=== PATIENT | female | born 1955 | race Caucasian/White ===

== ENCOUNTER 2018-01-26 14:33 | Outpatient (CLI) | payer OTHER ==
--- NOTE | 2018-01-27 17:45 | Mammography Report ---
DIGITAL SCREENING MAMMOGRAM: 01/26/2018 CLINICAL INDICATION: A 62-year-old for screening. COMPARISON: 04/2011, 06/2009, 09/2007. TECHNIQUE: Routine CC and MLO projections were obtained of the breasts. FINDINGS: Parenchymal tissue within the breasts is predominantly fatty replaced. There are no dominant masses, suspicious microcalcifications, or secondary signs of malignancy. In comparison to the previous studies, there are no significant changes. IMPRESSION: NO MAMMOGRAPHIC EVIDENCE OF MALIGNANCY. NO SIGNIFICANT INTERVAL CHANGES. RECOMMENDATION: Screening mammography is recommended annually. BIRADS category 1 - negative. STANDARD QUALIFYING STATEMENTS: 1. This examination was reviewed with the aid of Computed-Aided Detection (CAD). 2. A negative or benign imaging report should not delay biopsy if clinically suspicious findings are present. Consider surgical consultation if warranted. More than 5% of cancers are not identified by imaging. 3. Dense breasts may obscure an underlying neoplasm. TD: 01/27/2018 17:44
== END 2018-01-26 14:34 | disposition home or self-care (01) ==
LOC: DI.S 14:33
PROVIDERS: ATTEND Physician Assistant
DX: Z12.31 Encounter for screening mammogram for malignant neoplasm of breast (principal)
CPT/HCPCS: 77067

== ENCOUNTER 2021-05-16 08:45 | Outpatient (CLI) | payer MEDICARE ==
[2021-05-16 15:36] LABS: THYROID STIMULATING HORMONE 0.34 uIU/mL (0.34-5.60)
[2021-05-16 15:41] LABS: ALBUMIN 4.7 g/dL (3.2-5.5); ALBUMIN/GLOBULIN RATIO 1.6 (1.0-2.2); BILIRUBIN,TOTAL 1.1 mg/dL (0.2-1.0); CREATININE 0.9 mg/dL (0.4-1.0); POTASSIUM 3.9 mmol/L (3.5-5.0); TOTAL PROTEIN 7.7 g/dL (6.7-8.2)
[2021-05-17 12:02] LABS: HEPATITIS C ANTIBODY NON-REACTIVE (NON-REACTIVE)
[2021-05-17 15:57] LABS: HIV AG/AB 4TH GEN NON-REACTIVE (NON-REACTIVE)
== END 2021-05-16 08:46 | disposition home or self-care (01) ==
LOC: LAB.S 08:45
PROVIDERS: ATTEND Nurse Practitioner Family
DX: E03.9 Hypothyroidism, unspecified (principal); R19.7 Diarrhea, unspecified; Z11.59 Encounter for screening for other viral diseases; Z11.4 Encounter for screening for human immunodeficiency virus [HIV]
CPT/HCPCS: 36415; 80053; 84443; 86803; G0475; 87389; 87522

== ENCOUNTER 2021-10-25 11:46 | Outpatient (CLI) | payer MEDICARE, OTHER ==
[2021-10-25 15:12] LABS: CHOL/HDL RATIO 2.2 (<4.4); CHOLESTEROL 201 mg/dL; HDL CHOLESTEROL 92 mg/dL; LDL CHOLESTEROL,CALCULATED 90 mg/dL; TRIGLYCERIDES 94 mg/dL; VLDL CHOLESTEROL 19 mg/dL
[2021-10-25 15:21] LABS: THYROID STIMULATING HORMONE 0.92 uIU/mL (0.34-5.60)
== END 2021-10-25 11:47 | disposition home or self-care (01) ==
LOC: LAB.S 11:46
PROVIDERS: ATTEND Nurse Practitioner Family
DX: E03.9 Hypothyroidism, unspecified (principal); E78.5 Hyperlipidemia, unspecified
CPT/HCPCS: 36415; 80061; 83721; 84443